=== PATIENT | female | born 1960 | race Caucasian/White ===

== ENCOUNTER → 2021-08-07 14:01 | Outpatient (CLI) | payer OTHER, SELFPAY ==
[2021-08-07 14:34] LABS: COVID19 -Nasal RAPID Negative (Negative)
== END ==
PROVIDERS: PCP Family Medicine; Visit Provider Obstetrics & Gynecology
DX: Z20.822 Contact with and (suspected) exposure to COVID-19 (principal); Z01.812 Encounter for preprocedural laboratory examination
CPT/HCPCS: 87635

== ENCOUNTER 2021-08-10 06:27 | Day surgery (SDC) | payer OTHER, SELFPAY ==
[2021-08-06 13:50] VITALS: BMI 28.5
[2021-08-10] VITALS (8 sets, daily range): BP systolic 129–152; BP diastolic 66–92; PULSE 60–84; RESP 15–18; TEMP 35.4–36.4; O2SAT 98–100; BMI 28.5
--- NOTE | 2021-08-10 | PATH_ITS ---
[facility] Accession Number: [id number] . 01 Material submitted: . endometrium - ENDOMETRIAL POLYPS . 01 Diagnosis: Endometrial Polyps: Portions of endometrial tissue with features suggestive of cystic atrophy; negative for glandular hyperplasia, cytologic atypia, or malignancy. Most endometrial tissue fragments demonstrate prominent vessels, suggestive of polyp, if clinical and imaging findings are concordant. MRV 08/12/2021 1722 Local . 01 Electronically signed: . Kalina Kincaid MD, Pathologist NPI- [id number] . 01 Gross description: . ENDOMETRIAL POLYPS: Received in formalin are minute fragments of mucoid and hemorrhagic material measuring 2.5 x 2.0 x 0.5 cm in aggregate. Submitted in toto in 2 cassettes. /CPE 08/11/2021 0521 Local . 01 Pathologist provided ICD-10: N84.0 . 01 CPT . 602433 Specimen Comment: A courtesy copy of this report has been sent to [phone] Performed at: 01 [facility] [address] [place] [address], [place], [place] [id number] MD Brian Loza MD Phone: [phone]
[2021-08-10] MEDS: LACTATED RINGERS 1,000 ML 100 ML IV (06:51)
--- NOTE | 2021-08-10 07:49 | PM.HP.1 ---
History of Present Illness History of Present Illness Date Patient Seen: 08/10/21 Time Patient Seen: 07:50 Chief complaint: SDC Narrative: Patient is a 61-year-old 0 with postmenopausal bleeding and thickened endometrial lining which is thought to be a polyp. She presents for a D&C hysteroscopy with polypectomy. Patient History Surgical History (Updated 07/21/21 @ 21:32 by Jerrica Ferrari) Anesthesia History of tonsillectomy Family & Social History Family History (Updated 07/21/21 @ 21:36 by Jerrica Ferrari) Father Diabetes mellitus History of heart disease Mother Cancer Breast cancer Family/Other Ovarian cancer Family/Other Ovarian cancer Social History: household members spouse Tobacco & Substance use: Smoking Status Never smoker alcohol intake current alcohol intake frequency holiday/special occasion Substance Use Type does not use Meds Home Medications and Allergies Home Medications Medication Instructions Recorded Confirmed Type No Known Home Medications 07/22/21 08/06/21 History Allergies Allergy/AdvReac Type Severity Reaction Status Date / Time No Known Drug Allergies Allergy Verified 08/10/21 06:52 Exam Vital Signs (past 8 hours): - 08/10/21 06:59 Temperature 97.6 F Pulse Rate 84 Respiratory Rate 18 Blood Pressure 140/87 Pulse Oximetry 99 Oxygen Delivery Method Room Air Oxygen Delivery Method Room Air Narrative Exam Narrative: HEENT: No thyromegaly, no anterior cervical or supraclavicular lymphadenopathy. Lungs:Clear to auscultation bilaterally, no wheezes. Cardiovascular: Regular rate and rhythm, no murmurs, rubs, or gallops. Abdomen: No scars. No hepatosplenomegaly. No masses palpable. External genitalia: Normal Vagina: Normal Cervix: Normal Bimanual exam: 6 Week size uterus. Mobile. No adnexal masses or tenderness Extremities: No edema Assessment & Plan Assessment & Plan narrative: Assessment: 61-year-old 0 with a thickened endometrial lining by ultrasound Plan: D&C hysteroscopy with polypectomy The risks, benefits, and alternatives to the procedure were explained to the patient. The risks including bleeding, infection, and uterine perforation. She understands these risks and agrees to proceed. A full par Q was held and consent form was signed. COVID-19 COVID-19 status: Negative Result date/Date tested (Pos, Neg/Pending): 08/07/21 Time Spent With Patient Time with patient: less than 30 minutes Critical Care time: I spent a total of [] minutes of critical care time on this patient's care today; this time is exclusive of procedural time.
--- NOTE | 2021-08-10 07:54 | PM.PREOP ---
Pre-operative Note COVID-19 COVID-19 status: Negative Result date/Date tested (Pos, Neg/Pending): 08/10/21 Criteria for continued procedure: Non-surgical alternatives not available or appropriate per current SOC Interval Note History & Physical reviewed/Exam performed by Physician: Yes Changes to H&P: No H&P completed within 30 days and has changed as indicated here:: 08/10/21
--- NOTE | 2021-08-10 08:12 | SUR.OPER ---
Lithotomy on padded OR bed, head on pillow, arms secured on padded arm boards at <90 degrees abduction. Legs secured in padded yellow fins stirrups. POSITION APPROVED BY ANESTHESIA AND SURGEON
[2021-08-10] MEDS: HYDROCODONE/ACET 5/325 TABLET 1 TAB PO (08:58)
--- NOTE | 2021-08-10 09:18 | PM.GYNOP.1 ---
Operative Date/Time/Diagnoses Date of procedure: 08/10/21 Time of procedure: 09:18 Pre-op diagnosis: Endometrial hyperplasia Post-op diagnosis: same Procedure & Clinicians Procedure: Procedures Operation Date: 08/10/21 07:45 Actual Procedure Side Surgeon p D&C Hysteroscopy w. polypectomy Isabel Cornejo MD Indications: Endometrial hyperplasia by ultrasound Surgeon: Isabel Cornejo Anesthesia Type: General (LMA) Operative Notes Findings: 6 week size anteverted uterus Multiple polyps including 1 in the endocervical canal Closure Type: not applicable Specimen(s): endometrial polyp Estimated blood loss (mL): 10 Blood products transfused: none Procedure in detail: After informed consent was obtained, the patient was taken to the operating room where she was placed in the dorsal supine position. After adequate LMA general anesthesia was achieved, she was placed in the dorsal lithotomy position, and prepped and draped in the usual sterile fashion. A time-out was performed. A pediatric bivalve speculum was placed into the vagina and the anterior lip of the cervix was grasped with a single-tooth tenaculum. A polyp was seen coming out of the endocervical os and this was grasped with a polyp forceps and removed. The cervical os was sequentially dilated until the hysteroscope could pass easily into the endometrial cavity. There were multiple polyps in the endometrial cavity. Fluid was changed from normal saline to sorbitol. The hysteroscope was removed. The cervix was further dilated to the # 9 Hegar dilator. The resectoscope passed easily into the endometrial cavity. The polyps were resected in approximately 12 pieces. Settings were 80 cut and 60 cautery. Both fallopian tube ostia were observed once the polyps were removed. The instruments were removed from the uterus. The single-tooth tenaculum was removed from the anterior lip of the cervix. The bivalve speculum was removed from the vagina. Sponge, lap, and instrument counts were correct x2. The patient tolerated the procedure well, and was taken to PACU in stable condition. Complications: none Post-operative Condition: stable Disposition: PACU Plan for aftercare: Home after recovery
== END 2021-08-10 09:41 | disposition home or self-care (01) ==
PROVIDERS: PCP Family Medicine; Referring Provider Obstetrics & Gynecology; Visit Provider Obstetrics & Gynecology
PROC: 0UDB8ZZ Extraction of Endometrium, Via Natural or Artificial Opening Endoscopic (ICD-10-PCS; CPT 58558; principal; 2021-08-10 07:45)
DX: N84.0 Polyp of corpus uteri (principal); N95.0 Postmenopausal bleeding
CPT/HCPCS: 58558; J1100; J1885; J2250; J2405; J2704; J3010

== ENCOUNTER → 2022-07-13 07:54 | Outpatient (CLI) | payer OTHER, SELFPAY ==
--- NOTE | 2022-07-13 07:55 | DI.US.S_ITS ---
PROCEDURE: US PELVIC COMPLETE INDICATIONS: PAIN TECHNIQUE: Real-time scanning was performed of the pelvic organs, with image documentation. Additional endovaginal scanning was necessary due to incomplete visualization of the adnexal and endometrial structures by transabdominal scanning. COMPARISON: [facility], US, US PELVIC COMPLETE WITH TRANSVAGINAL, 06/23/2021, 7:14. [facility], US, US PELVIC COMPLETE, 07/22/2021, 15:00. FINDINGS: Uterus: Uterus is anteverted and normal in size at 6.0 x 5.2 x 2.6 cm. The myometrium is heterogeneous. The endometrium measures 1.8 mm combined thickness. There is a 0.6 x 0.4 x 0.5 cm ill-defined vascular mass within the left uterine fundus and a 0.5 x 0.8 x 0.3 cm nonvascular mass within the endometrial fundus at midline. Ovaries: The right ovary measures 2.3 x 1.3 x 1.2 cm, with a calculated ovarian volume of 2.0 cc. The left ovary measures 2.2 x 1.2 x 1.2 cm, with a calculated ovarian volume of 1.6 cc. The ovaries have a normal sonographic appearance. Less than 12 follicles can be seen in each ovary. There is a shadowing, hypoechoic 2.5 x 1.7 x 2.3 cm right adnexal mass with some areas of internal vascularity. This measured 1.9 x 2.3 x 1.6 cm on the comparison ultrasound dated June 23, 2021. Other: No pathologic free abdominal or pelvic fluid. IMPRESSION: 1. Questionable small uterine polyps versus uterine fibroids as above. If further characterization is warranted, hysterosonogram could be used. 2. Probable right dermoid cyst similar in size to 2021. Annual sonographic surveillance recommended. We strive to produce accurate, complete, and clear reports of imaging services. To assist us in improving patient care, this report was composed using standard report templates and voice recognition software. Therefore, it may contain abnormal punctuation, insertions and/or omissions. Occasional wrong-word or sound-alike substitutions may occur. Though we review the report and make efforts to correct it, we do recommend that the report be read carefully in proper context to recognize any text inaccuracies. Dictated by: Emily Hicks M.D. on 07/13/2022 at 10:29 Approved by: Emily Hicks M.D. on 07/13/2022 at 10:43
== END ==
PROVIDERS: PCP Nurse Practitioner Family; Referring Provider Obstetrics & Gynecology; Visit Provider Obstetrics & Gynecology
DX: R10.2 Pelvic and perineal pain (principal)
CPT/HCPCS: 76830; 76856; 93975

== ENCOUNTER 2022-09-23 06:19 | Day surgery (SDC) | payer OTHER, SELFPAY ==
[2022-09-21 12:43] VITALS: BMI 28.5
--- NOTE | 2022-09-23 | PATH_ITS ---
[facility] Accession Number: [id number] No. of containers..02 Tissue . 01 Material submitted: . PART A: ovary - RIGHT OVARY AND FALLOPIAN TUBE, LEFT FALLOPIAN TUBE. PART B: endometrium - ENDOMETRIAL CURETTING . 01 Diagnosis: A. Right and Left Fallopian Tubes, and Right Ovary, Bilateral Salpingectomy and Oophorectomy: Ovary: Fibroma; background postmenopausal changes. Fallopian tubes: No significant pathologic abnormalities. . B. Endometrium, Curettage: Scant detached strips of endometrial epithelium with focal eosinophilic metaplasia. Negative for significant atypia. [facility] 09/30/2022 1756 Local . 01 Comment: The ovarian spindle cell neoplasm (specimen A) shows no significant cytologic atypia, mitotic activity, significantly increased cellularity, or necrosis. A panel of immunostains is obtained to further characterize, with the controls stained appropriately. The tumor shows the following results (block A3): . Inhibin: Focally positive. Desmin: Negative. Calretinin: Variably positive. SOX-10: Negative. WT1: Uniformly positive. Ki-67: Less than 5%. . These immunophenotypic results support the morphologic suspicion of a fibroma given coexpression of inhibin and calretinin. In addition, there is no evidence for a smooth muscle (negative desmin) or neurogenic (negative SOX-10) neoplasm. . * This test was developed and its performance characteristics determined by [employer]. It has not been cleared or approved by the U.S. Food and Drug Administration. The FDA has determined that such clearance or approval is not necessary. This test is used for clinical purposes. It should not be regarded as investigational or for research. . 01 Electronically signed: . Sheela Main MD, Pathologist NPI- [id number] . 01 Gross description: . A. Received in formalin, labeled with the patient's name, , and right ovary and fallopian tube, left fallopian tube, and consists of a presumed right fallopian tube measuring 5.7 cm in length by 0.6 cm in diameter attached a presumed right ovary which weighs 12 g and measures 3.7 x 3.0 x 2.5 cm and is inked blue. The presumed left fallopian tube measures 6.5 cm in length by 0.7 cm in diameter. The left fallopian tube has mederos, smooth serosa with no cystic structures identified. Sectioning reveals an unremarkable stellate lumen. The right fallopian tube has mederos smooth serosa with a cystic structure measuring 0.2 cm in greatest dimension filled with cloudy serous fluid. Sectioning reveals an unremarkable stellate lumen. The ovary has a pale mederos and smooth to yellow and wrinkled external surface that is inked blue. Sectioning reveals a white, whorled, rubbery cut surface with minimal grossly normal parenchyma. The white, rubbery area grossly approaches the blue-inked external surface. Pediatric Registered Nurse sections are submitted as follows: A1: Left fallopian tube to include one-half of bisected fimbriae and cross sections. A2: Right fallopian tube to include one-half of bisected fimbriae and cross sections. A3-A6: Pediatric Registered Nurse ovary to include normal parenchyma and white, rubbery area. B. Received in formalin, labeled with the patient's name, , and endometrial curetting, and consists of two red-brown soft tissue fragments aggregating to 0.6 x 0.5 x 0.1 cm. Filtered and submitted entirely in cassette B1. ([id number]) /FRR 09/25/[address] [place] [address] . 01 Pathologist provided ICD-10: D27.9 . 01 CPT . 398840, 275152, N80555, C42796 Specimen Comment: A courtesy copy of this report has been sent to [phone] Performed at: 01 [facility] [address] [place] [address], [place], [place] [id number] MD Brian Loza MD Phone: [phone]
[2022-09-23 06:35] VITALS: BP 143/76; PULSE 71; RESP 16; TEMP 36.3; O2SAT 98; BMI 28.5
[2022-09-23] MEDS: LACTATED RINGERS 1,000 ML 100 ML IV (06:50)
--- NOTE | 2022-09-23 07:41 | PM.GYNHP.1 ---
History of Present Illness History of Present Illness Reason for admission: other (Right ovarian dermoid, endometrial polyps) Narrative: Hailey Vasques is a 62 year old female G0 who presents for a laparoscopic right salpingo-oophorectomy, left salpingectomy, and D&C hysteroscopy with polypectomy [facility] Surgical History (Updated 09/21/22 @ 12:45 by Laura Lieberman RN) Anesthesia History of hysteroscopy (08/10/21) History of tonsillectomy Family History (Updated 07/21/21 @ 21:36 by Jerrica Ferrari) Father Diabetes mellitus History of heart disease Mother Cancer Breast cancer Family/Other Ovarian cancer Family/Other Ovarian cancer Social History household members: spouse Smoking Status: Never smoker alcohol intake: current Meds Home Medications and Allergies Home Medications Medication Instructions Recorded Confirmed Type No Known Home Medications 07/22/21 08/03/22 History Allergies Allergy/AdvReac Type Severity Reaction Status Date / Time No Known Drug Allergies Allergy Verified 09/23/22 06:30 Exam Vital Signs (past 8 hours): - 09/23/22 06:35 Temperature 97.3 F L Pulse Rate 71 Respiratory Rate 16 Blood Pressure 143/76 H Pulse Oximetry 98 Oxygen Delivery Method Room Air Oxygen Delivery Method Room Air Narrative Exam Narrative: HEENT: No thyromegaly, no anterior cervical or supraclavicular lymphadenopathy. Lungs:Clear to auscultation bilaterally, no wheezes. Cardiovascular: Regular rate and rhythm, no murmurs, rubs, or gallops. Abdomen: No scars. No hepatosplenomegaly. No masses palpable. External genitalia: Normal Vagina: Normal Cervix: Normal Bimanual exam: 6 Week size uterus. Mobile. Extremities: No edema Assessment & Plan Assessment & Plan narrative: Assessment: 62-year-old 0 with a right ovarian dermoid and endometrial polyps Plan: Laparoscopic right salpingo-oophorectomy with left salpingectomy, D&C hysteroscopy with polypectomy The risks, benefits, and alternatives to the procedure were explained to the patient. The risks including bleeding, infection, injury to the bowel, bladder, or ureters, or uterine perforation. She understands all of these risks and agrees to proceed. A full par Q was held and consent form was signed. Time Spent With Patient Time with patient: less than 30 minutes
--- NOTE | 2022-09-23 07:47 | PM.PREOP ---
Pre-operative Note COVID-19 Criteria for continued procedure: Non-surgical alternatives not available or appropriate per current SOC Interval Note History & Physical reviewed/Exam performed by Physician: Yes Changes to H&P: No H&P completed within 30 days and has changed as indicated here:: 09/23/22
--- NOTE | 2022-09-23 08:21 | SUR.OPER ---
Supine on padded OR bed, head on pillow, arms padded and tucked at sides, legs uncrossed, safety belt at thigh, tape over blanket over lower legs .
--- NOTE | 2022-09-23 08:21 | SUR.OPER ---
Lithotomy on padded OR bed, head on pillow, arms secured on padded arm boards at <90 degrees abduction. Legs secured in padded yellow fins stirrups.
[2022-09-23 09:14] VITALS: BP 118/53; PULSE 56; RESP 16; TEMP 36.4; O2SAT 98
--- NOTE | 2022-09-23 09:16 | P.OP_ITS ---
Operative Date/Time/Diagnoses Date of procedure: 09/23/22 Time of procedure: 09:16 Pre-op diagnosis: Right ovarian dermoid Possible uterine polyps on ultrasound Post-op diagnosis: same Procedure & Clinicians Procedure: Procedures Operation Date: 09/23/22 07:45 Actual Procedure Side Surgeon p Laparoscopic Right Salpingo-oophorectomy, Left Salpingectomy Isabel Cornejo MD s D&C Hysteroscopy Isabel Cornejo MD Indications: Possible uterine polyps on ultrasound Right ovarian dermoid Surgeon: Isabel Cornejo Anesthesia Type: General and Local Operative Notes Findings: 5 week size ?wide uterus Normal tubes Normal left ovary Right ovary enlarged Normal liver and gallbladder Normal appendix Small left uterine horn connected to the uterus at the fundus Right fallopian tube ostia observed Closure Type: primary Specimen(s): endometrial curettings, left tube and right tube & ovary Applied: catheter (In and out during the case) Estimated blood loss (mL): 10 Blood products transfused: none Procedure in detail: After informed consent was obtained, the patient was taken to the operating room where she was placed in the dorsal supine position. After adequate general endotracheal anesthesia was achieved, she was placed in the dorsal lithotomy position, and prepped and draped in the usual sterile fashion. A time-out was performed. A bivalve speculum was placed into the vagina. A single-tooth skinny culum was placed on the anterior lip of the cervix. The cervical os was sequentially dilated until the Zumi uterine manipulator could pass easily into the endometrial cavity. The single-tooth tenaculum was removed from the anterior lip of the cervix. The bivalve speculum was removed from the vagina. Attention was then turned to the abdomen where 6 cc of 0.25% Marcaine with epinephrine were injected in the umbilical fold. A 5 mm incision was made. The Veress needle was placed into the peritoneal cavity, and its placement confirmed by aspiration and drop test. The abdominal cavity was insufflated with 3.6 L of CO2. The Veress needle was removed, and a 5 mm trocar was placed without difficulty. Two other incisions were made 4 cm lateral to the midline after 6 cc of 0.25% Marcaine with epinephrine were injected. Two other 5 mm trocars were placed and two 5 mm trocars were placed under direct visualization. The pelvis and abdomen were examined with the findings noted above. The right tube and ovary were grasped with an atraumatic grasper. Using the LigaSure, the infundibulopelvic ligament on the right side was cauterized and cut. The mesosalpinx was cauterized and cut all the way down to the cornua of the uterus. The utero-ovarian vessels were cauterized and cut. The tube was amputated at the cornua of the uterus. The tube and ovary were placed into the anterior cul -de-sac. The left tube was grasped with an atraumatic grasper. Using the LigaSure, the mesosalpinx was cauterized and cut all the way down to the cornua of the uterus. The tube was amputated at the cornua. Attention was then turned to the suprapubic region where 6 cc of 0.25% Marcaine with epinephrine were injected above the pubic symphysis. A 12 mm incision was made. A 12 mm trocar was placed under direct visualization. The small endobag was placed through the suprapubic trocar and opened. The right ovary and tube and left tube were placed into the endobag. The trocar was removed. The bag was removed through the fascia. The fascia was reapproximated with 0 Vicryl in a running fashion. Two simple interrupted sutures were placed in the subcutaneous layer with 3-0 Vicryl. Abdomen was re-insufflated. The pelvis was examined and there was no bleeding noted. The instruments were removed from the abdomen. The CO2 was allowed to escape. All of the incisions were closed with 4-0 Monocryl in a subcuticular fashion. Steri-Strips and Allevyn dressings were placed. Attention was then turned to the vagina where the Zumi uterine manipulator was removed from the uterus. A bivalve speculum was placed into the vagina. A single-tooth tenaculum was placed on the anterior lip of the cervix. The cervical os was dilated to the # 9 Hegar dilator. The hysteroscope passed easily into the endometrial cavity. There appeared to be a small right horn of the uterus with potentially a septum, but the camera passed up towards the right cornua of the uterus. The fallopian tube ostia was observed. Looking over to the left there was a small canal which went into another small horn of the uterus. The hysteroscope was removed. Polyp forceps were placed up into the left horn and some tissue was grasped to send to pathology. The instruments were removed from the uterus. The single-tooth tenaculum was removed from the anterior lip of the cervix. The bivalve speculum was removed from the vagina. Sponge, lap, and instrument counts were correct x2. The patient tolerated the procedure well, and was taken to PACU stable condition. Complications: none Post-operative Condition: stable Disposition: PACU Plan for aftercare: Home after recovery
[2022-09-23 09:19] VITALS: BP 119/55; PULSE 69; RESP 16; O2SAT 98
[2022-09-23 09:26] VITALS: BP 125/56; PULSE 58; RESP 16; O2SAT 98
[2022-09-23] MEDS: hydrOXYzine pamoate 25 MG CAPSULE PO (09:28)
[2022-09-23] MEDS: HYDROCODONE/ACET 5/325 TABLET 1 TAB PO (09:28)
[2022-09-23 09:35] VITALS: BP 112/51; PULSE 59; RESP 16; O2SAT 98
[2022-09-23 09:38] VITALS: BP 112/51; PULSE 67; RESP 16; O2SAT 96
== END 2022-09-23 10:01 | disposition home or self-care (01) ==
PROVIDERS: PCP Nurse Practitioner Family; Referring Provider Obstetrics & Gynecology; Visit Provider Obstetrics & Gynecology
PROC: (CPT 58661; principal; 2022-09-23 07:45)
PROC: 0UDB8ZZ Extraction of Endometrium, Via Natural or Artificial Opening Endoscopic (ICD-10-PCS; CPT 58558; 2022-09-23 07:45)
DX: D27.0 Benign neoplasm of right ovary (principal); Q51.818 Other congenital malformations of uterus
CPT/HCPCS: 58661; 58558; J1100; J1170; J1885; J2405; J2704; J3010; J3490